=== PATIENT | female | born 1980 | race African-American/Black ===

== ENCOUNTER 2019-07-15 11:17 | Emergency (ER) | payer OTHER ==
[~2019-07-15] VITALS: Ht 167.6 cm; Wt 61.2 kg
[2019-07-15] MEDS ORDERED: FAMOTIDINE 20 MG/2 ML VIAL IV STA (11:45)
[2019-07-15] MEDS ORDERED: METHYLPREDNISOLONE SOD SUCC 125 MG/2ML VIAL IV ONE (11:45)
[2019-07-15] MEDS ORDERED: METHYLPREDNISOLONE SOD SUCC 125 MG/2ML VIAL ONE (12:23)
[2019-07-15] MEDS ORDERED: FAMOTIDINE 20 MG/2 ML VIAL IV ONE (12:23)
[2019-07-15] MEDS ORDERED: DIPHENHYDRAMINE HCL 25 MG CAP ONE (13:53)
[2019-07-15] MEDS ORDERED: CLINDAMYCIN HC150 MG PO (14:21)
[2019-07-15] MEDS ORDERED: ULTRAM50 MG PO (14:24)
[2019-07-15] MEDS ORDERED: PREDNISONE20 MG PO (14:29)
[2019-07-15] MEDS ORDERED: PEPCID20 MG PO (14:30)
[2019-07-15] MEDS ORDERED: DIPHENHYDRAMINE HCL 25 MG CAP PO ONE (15:00)
[2019-07-15 16:04] VITALS: BP 109/64
== END 2019-07-15 16:10 | disposition home or self-care (01) ==
LOC: FSED 11:17
DX: T78.40XA Allergy, unspecified, initial encounter (principal); T36.0X4A Poisoning by penicillins, undetermined, initial encounter; T78.3XXA Angioneurotic edema, initial encounter; R07.89 Other chest pain; K02.9 Dental caries, unspecified; K08.89 Other specified disorders of teeth and supporting structures
CPT/HCPCS: 80048; 81003; 81025; 82553; 84484; 85025; 93005; 96374; 96376; 99284; J2930

== ENCOUNTER 2020-03-24 22:44 | Emergency (ER) | payer OTHER ==
[~2020-03-24] VITALS: Ht 167.6 cm; Wt 64.9 kg
[~2020-03-24 22:44] MED LIST: CLINDAMYCIN HC150 MG PO; PEPCID20 MG PO; PREDNISONE20 MG PO; ULTRAM50 MG PO
[2020-03-24] MEDS ORDERED: KETOROLAC TROMETHAMINE 30 MG/ML VIAL IV STA (23:26)
[2020-03-24] MEDS ORDERED: ONDANSETRON HCL INJ 2MG/ML 2ML 2 MG/ML VIAL IV STA (23:28)
[2020-03-24] MEDS ORDERED: SODIUM CHLORIDE 0.9% 1000ML 1,000 ML IV SCH (23:30)
[2020-03-24] MEDS ORDERED: IOPAMIDOL 370 MG/ML 200 ML INFUS..BTL INJ ONE (23:47)
[2020-03-24] MEDS ORDERED: SODIUM CHLORIDE 0.9% 50ML 50 ML ONE (23:47)
[2020-03-24] MEDS ORDERED: KETOROLAC TROMETHAMINE 30 MG/ML VIAL ONE (23:53)
[2020-03-24] MEDS ORDERED: ONDANSETRON HCL INJ 2MG/ML 2ML 2 MG/ML VIAL ONE (23:54)
[2020-03-24] MEDS ORDERED: SODIUM CHLORIDE 0.9% 1000ML 1,000 ML ONE (23:54)
[2020-03-25] MEDS ORDERED: HYDROCODONE/APAP 5MG-325MG TAB PO ONE (00:15)
[2020-03-25] MEDS ORDERED: HYDROCODONE/APAP 5MG-325MG TAB ONE (00:41)
[2020-03-25] MEDS ORDERED: ZOFRAN4 MG PO (01:44)
[2020-03-25] MEDS ORDERED: CEFTRIAXONE SOD 500 MG VIAL IM ONE (02:45)
[2020-03-25] MEDS ORDERED: DOXYCYCLINE HY100 MG PO (03:02)
[2020-03-25] MEDS ORDERED: METRONIDAZOLE500 MG PO (03:03)
[2020-03-25] MEDS ORDERED: CEFTRIAXONE SOD 500 MG VIAL ONE (03:10)
[2020-03-25 03:19] VITALS: BP 106/69
== END 2020-03-25 03:19 | disposition home or self-care (01) ==
LOC: FSED 23:27
DX: R07.9 Chest pain, unspecified (principal); Z86.16 Personal history of COVID-19; N73.9 Female pelvic inflammatory disease, unspecified
CPT/HCPCS: 71046; 74177; 81003; 82553; 85025; 85379; 93005; 96372; 96374; 96376; 99284; J0696; J1885; J2405; J7030; Q9967